=== PATIENT | female | born 1985 | race Caucasian/White ===

== ENCOUNTER → 2024-12-09 13:11 | Outpatient (REF) | payer BC, SELFPAY | LOC: HWRAD 13:11 | PROVIDERS: ATTENDING PHYSICIAN Nurse Practitioner Adult Health; FAMILY PHYSICIAN Nurse Practitioner Adult Health | DX: N92.4 Excessive bleeding in the premenopausal period (principal) | CPT/HCPCS: 76830; 76856 ==

== ENCOUNTER → 2025-02-05 06:36 | Outpatient (REF) | payer BC, SELFPAY ==
[2025-02-05 15:09] LABS: Rheumatoid Agglutinin Less Than 10 IU (<10 IU)
[2025-02-07 05:52] LABS: ANA, IgG Reflex to HEp-2 None Detected (None Detected)
== END ==
LOC: REG 06:36
PROVIDERS: ATTENDING PHYSICIAN Nurse Practitioner Adult Health
DX: R76.89 Other specified abnormal immunological findings in serum (principal); R53.83 Other fatigue; D80.2 Selective deficiency of immunoglobulin A [IgA]
CPT/HCPCS: 36415; 86038; 86160; 86235; 86430

== ENCOUNTER → 2025-03-03 15:41 | Outpatient (REF) | payer BC, SELFPAY | LOC: HWRAD 15:41 | PROVIDERS: ATTENDING PHYSICIAN Internal Medicine Rheumatology; FAMILY PHYSICIAN Nurse Practitioner Adult Health | DX: M25.50 Pain in unspecified joint (principal); M54.50 Low back pain, unspecified | CPT/HCPCS: 72110; 73130 ==